=== PATIENT | female | born 1985 | race Caucasian/White ===

== ENCOUNTER → 2021-12-31 14:14 | Outpatient (BNVA) | payer BC, MEDICAID, SELFPAY | PROVIDERS: Visit Provider Thoracic Surgery (Cardiothoracic Vascular Surgery) | DX: I83.93 Asymptomatic varicose veins of bilateral lower extremities (principal) | CPT/HCPCS: 99203 ==

== ENCOUNTER 2022-03-18 09:15 | Outpatient (CLI) | payer BC, MEDICAID, SELFPAY ==
--- NOTE | 2022-03-18 09:30 | USCV_ITS ---
Buffy Braden Age: 36 Gender: F : 1985 Exam Date: 03/18/2022 09:47 Ordering Phys: Khai Lubin MD (Andy) ([email or web address]) Technologist: Ezequiel Vasquez Exam Location: [facility] [place] Indication: HISTORY: Varicose veins. PROCEDURES: Bilateral duplex Venous Insufficiency study of the Deep and Superficial systems was carried out according to normal protocol with the patient in supine positon for deep system and dependent position for the superficial system. FINDINGS: All deep veins demonstrated compressibility without evidence of intraluminal thrombus or increased echogenicity. Spectral analysis of Doppler signals demonstrates normal response to compression maneuvers indicating patency without obstruction. Reflux determinations were made with the patient in the dependent position, the weight being on the contralateral leg. There is one location of significant reflux at the jucntion of the rt gsaph. CONCLUSIONS No evidence of DVT in the above-mentioned identifiable veins. Significant venous reflux of greater than 500 ms was noted at the right saphenofemoral junction No other significant reflux were noted either in the deep or in the superficial veins Normal caliber veins bilaterally Superficial veins were found to be mostly less than 1 cm deep from the surface Dr Tremayne Rangel MD [facility] (Electronically Signed) Final Date: 20 March 2022 18:43 S
== END 2022-03-18 09:16 | disposition home or self-care (01) ==
LOC: RAD 09:18
PROVIDERS: PCP Family Medicine; Visit Provider Thoracic Surgery (Cardiothoracic Vascular Surgery)
DX: I83.90 Asymptomatic varicose veins of unspecified lower extremity (principal); I87.2 Venous insufficiency (chronic) (peripheral)
CPT/HCPCS: 93970